=== PATIENT | female | born 1955 | race Asian ===

== ENCOUNTER → 2019-02-03 17:45 | Outpatient (CLI) | payer OTHER, SELFPAY ==
--- NOTE | ~2019-02-03 | MM_ITS ---
EXAMINATION: MM screening [facility] BI w thomas HISTORY: Screening mammogram TECHNIQUE: Craniocaudal and mediolateral oblique 3-D tomosynthesis images were obtained and synthetic 2-D images were generated. CAD analysis was submitted and interpreted. COMPARISON: No prior mammogram is available for comparison at this institution. BREAST PARENCHYMAL COMPOSITION: The breasts are heterogeneously dense, which may obscure small masses . FINDINGS: There is no evidence of suspicious mass, calcification, or architectural distortion to sugg est malignancy in either breast. IMPRESSION: 1. No mammographic evidence of malignancy. 2. Recommend routine screening mammography in one year. BI-RADS Category 1: Negative Reviewed, dictated and finalized at location A. AIDE
== END ==
PROVIDERS: Visit Provider Nurse Practitioner Family
DX: Z12.31 Encounter for screening mammogram for malignant neoplasm of breast (principal)
CPT/HCPCS: 77063; 77067

== ENCOUNTER → 2020-05-05 10:04 | Outpatient (CLI) | payer OTHER, SELFPAY ==
--- NOTE | ~2020-05-05 | MM_ITS ---
EXAMINATION: MM screening [facility] w thomas HISTORY: Screening TECHNIQUE: Craniocaudal and mediolateral oblique 3-D tomosynthesis images were obtained and synthetic 2-D images were generated. CAD analysis was submitted and interpreted. COMPARISON: 02/03/2019 BREAST PARENCHYMAL COMPOSITION: The breasts are heterogeneously dense, which may obscure small masses . FINDINGS: There is no evidence of suspicious mass, calcification, or architectural distortion to sugg est malignancy in either breast. There has been no suspicious interval change. IMPRESSION: 1. No mammographic evidence of malignancy. 2. Recommend routine screening mammography in one year. BI-RADS Category 1: Negative Reviewed, dictated and finalized at location A. 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
== END ==
PROVIDERS: PCP Family Medicine; Visit Provider Family Medicine
DX: Z12.31 Encounter for screening mammogram for malignant neoplasm of breast (principal)
CPT/HCPCS: 77063; 77067

== ENCOUNTER → 2020-05-17 07:54 | Outpatient (CLI) | payer OTHER, SELFPAY ==
--- NOTE | ~2020-05-17 | XR_ITS ---
EXAMINATION: XR chest 2V DATE: 05/17/2020 08:14 INDICATION: Other chest pain. TECHNIQUE: Frontal and lateral views of the chest were obtained. COMPARISON: Abdomen radiographs 12/24/2018 FINDINGS: Calcified left lung nodules are consistent with old granulomatous disease. There is volume loss of right hemithorax with blunting of the costophrenic angles and right sixth rib thoracotomy def ect, consistent with partial right lung resection. No significant pleural effusion. No pneumothorax. The heart size is normal. IMPRESSION: 1. Changes of partial right lung resection. Reviewed, dictated and finalized at location A.
== END ==
PROVIDERS: PCP Family Medicine; Visit Provider Family Medicine
DX: R07.89 Other chest pain (principal)
CPT/HCPCS: 71046

== ENCOUNTER 2020-11-29 10:42 | Outpatient (CLI) | payer MEDICARE, SELFPAY ==
--- NOTE | ~2020-11-29 | XR_ITS ---
XR pelvis 1-2V DATE: 11/29/2020 10:59 INDICATION: Right iliac crest pain, coccyx pain TECHNIQUE: AP view COMPARISON: None FINDINGS: The pubic symphysis and sacroiliac joints are intact. Hip joint spaces appear symmetric and relatively preserved. No pelvic fracture or bone destruction. The sacrum and coccyx appear normal. IMPRESSION: Negative Reviewed, dictated and finalized at location B. IMPRESSION: Negative
== END 2020-11-29 10:43 | disposition home or self-care (01) ==
PROVIDERS: PCP Family Medicine; Visit Provider Physician Assistant
DX: M89.8X8 Other specified disorders of bone, other site (principal); M53.3 Sacrococcygeal disorders, not elsewhere classified
CPT/HCPCS: 72170

== ENCOUNTER → 2021-10-03 12:18 | Outpatient (CLI) | payer MEDICARE, SELFPAY ==
--- NOTE | ~2021-10-03 | DEXA_ITS ---
Bone Density Report Name: ASHLY LAI Age: 65 Sex: Female Ethnicity: Date of : 1955 Indication: postmenopausal; screening for osteoporosis; Referring Provider: FÉLIX PETERSON Study: Bone densitometry was performed. Exam Date: October 03, 2021 Accession number: [id number] Bone Density: Region BMD T-score Z-score Classification AP Spine (L1-L4) 0.840 -1.9 -0.1 Osteopenia Femoral Neck (Left) 0.702 -1.3 0.2 Osteopenia Total Hip (Left) 0.871 -0.6 0.7 Normal Femoral Neck (Right) 0.662 -1.7 -0.1 Osteopenia Total Hip (Right) 0.855 -0.7 0.6 Normal Total Hip Mean 0.863 -0.7 0.7 Normal World Health Organization criteria for BMD impression classify patients as: Normal (T-score at or above -1.0), Osteopenia (T-score between -1.0 and -2.5), or Osteoporosis (T-score at or below -2.5). 10-year Fracture Risk(1): Major Osteoporotic Fracture 6.3% Hip Fracture 1.0% Reported Risk Factors: [place] (), Neck BMD=0.662, BMI=25.7, alcohol use (1) FRAX(R) Version 3.08. Fracture probability calculated for an untreated patient. Fracture probability may be lower if the patient has received treatment. Clinical Information Provided by Patient: Has 3 or more alcoholic drinks per day Has used the following medications: Vitamin D, Calcium, MTV Patient maximum height was 59.5 Menopause Age: 51 Does not regularly consume dairy products Drinks caffeinated beverages Onset of menses at age 16 Number of children 2 Impression: The patient has low bone mass, based on the Total Spine T-score. The patient has an estimated ten-year risk of hip fracture of 1% and an estimated ten-year risk of major fracture of 6.3%, based on the WHO FRAX algorithm. The patient has risk factors, including: excessive alcohol use. Discussion: BONE DENSITY IS LOW AT ONE OR MORE SKELETAL SITES. This patient's lowest T-score is low at one or more skeletal sites. It meets the World Health Organization's (WHO) criteria for ?low bone mass? (T-score between -1.0 and -2.5). The patient's 10-year risk of fracture as calculated by FRAX is less than the threshold where pharmacological therapy is recommended by the National Osteoporosis Foundation (NOF). However, all treatment decisions require clinical judgment and consideration of individual patient factors, including patient preferences, comorbidities, previous drug use, risk factors not captured in the FRAX model (e.g., frailty, falls, vitamin D deficiency, increased bone turnover, interval significant decline in bone density) and possible under or overestimation of fracture risk by FRAX. The patient should follow a healthful lifestyle (good nutrition with adequate calcium and vitamin D, and appropriate weight-bearing exercise). Follow-Up: Consider repeating this study in 2 to 3 years to re
--- NOTE | ~2021-10-03 | MM_ITS ---
EXAMINATION: MM screening [facility] BI w thomas HISTORY: Screening TECHNIQUE: Craniocaudal and mediolateral oblique 3-D tomosynthesis images were obtained and synthetic 2-D images were generated. CAD analysis was submitted and interpreted. COMPARISON: Comparison to multiple prior studies sequentially, with oldest reviewed study dated 06/2018. BREAST PARENCHYMAL COMPOSITION: The breasts are heterogenously dense, which may obscure small masses FINDINGS: There is no evidence of suspicious mass, calcification, or architectural distortion to sugg est malignancy in either breast. There has been no suspicious interval change. IMPRESSION: 1. No mammographic evidence of malignancy. 2. Recommend routine screening mammography in one year. BI-RADS Category 1: Negative Reviewed, dictated and finalized at location A.
== END ==
PROVIDERS: PCP Family Medicine; Visit Provider Nurse Practitioner Gerontology
DX: Z12.31 Encounter for screening mammogram for malignant neoplasm of breast (principal); Z78.0 Asymptomatic menopausal state
CPT/HCPCS: 77063; 77067; 77080

== ENCOUNTER → 2023-01-17 13:31 | Outpatient (CLI) | payer MEDICARE, SELFPAY ==
--- NOTE | ~2023-01-17 | MM_ITS ---
EXAMINATION: MM screening [facility] BI w thomas HISTORY: Screening mammogram TECHNIQUE: Craniocaudal and mediolateral oblique 3-D tomosynthesis images were obtained and synthetic 2-D images were generated. CAD analysis was submitted and interpreted. COMPARISON: 10/03/2021, 05/05/2020, 02/03/2019 BREAST PARENCHYMAL COMPOSITION: The breasts are heterogeneously dense, which may obscure small masses . FINDINGS: No suspicious mass, calcification, or architectural distortion are identified in either marcelino ast to suggest malignancy. There has been no suspicious interval change. IMPRESSION: 1. No mammographic evidence of malignancy. 2. Recommend routine screening mammography in one year. BI-RADS Category 1: Negative Reviewed, dictated and finalized at location A. 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
== END ==
PROVIDERS: PCP Family Medicine; Visit Provider Family Medicine
DX: Z12.31 Encounter for screening mammogram for malignant neoplasm of breast (principal)
CPT/HCPCS: 77063; 77067

== ENCOUNTER 2023-07-15 07:04 | Outpatient (CLI) | payer MEDICARE, SELFPAY ==
[2023-07-15 08:58] LABS: Alanine Aminotransferase 86 U/L (6-35); Albumin Level 4.5 g/dL (3.5-5.1); Alkaline Phosphatase 81 U/L (38-126); Anion Gap 5 mmol/L (4-12); Aspartate Amino Transferase 62 U/L (14-36); Bilirubin,Total 0.6 mg/dL (0.2-1.3); Blood Urea Nitrogen 17 mg/dL (7-17); Carbon Dioxide 27 mmol/L (22-30); Chloride 105 mmol/L (98-107); Cholesterol 175 mg/dL (0-200); Estimated Glomerular Filt Rate > 60; Glucose 100 mg/dL (65-110); HDL Direct 55 mg/dL; Potassium 4.1 mmol/L (3.4-5.0); Sodium 137 mmol/L (137-145); Triglycerides 280 mg/dL (<150)
[2023-07-15 09:09] LABS: LDL Cholesterol Direct 68 mg/dL
== END 2023-07-15 07:05 | disposition home or self-care (01) ==
LOC: ANHLAB 07:06
PROVIDERS: PCP Family Medicine; Visit Provider Physician Assistant
DX: E78.1 Pure hyperglyceridemia (principal); E78.2 Mixed hyperlipidemia; I10 Essential (primary) hypertension
CPT/HCPCS: 36415; 80053; 80061

== ENCOUNTER 2023-09-01 08:44 | Outpatient (CLI) | payer MEDICARE, SELFPAY ==
--- NOTE | ~2023-09-01 | US_ITS ---
COMPLETE ABDOMINAL ULTRASOUND Ordering provider: Rhonda Andrade MD History: . R74.01 - Elevation of levels of liver transaminase levels . Comparison: None. FINDINGS: LIVER: Normal size and echotexture. No focal hepatic lesions or perihepatic fluid collections are mahin ntified. Normal flow of the portal vein. GALLBLADDER: Unremarkable. No evidence for stones, sludge, gallbladder wall thickening or pericholecy stic fluid collections. Wall thickening is 0.2 cm. A negative sonographic Hoff's sign was noted. BILIARY DUCTS: No evidence for intra or extrahepatic biliary dilation. Common bile duct measures 9 mm in diameter which is within normal limits. PANCREAS: Normal echotexture and size. UPPER ABDOMINAL AORTA: Normal in caliber. IVC: Patent. FREE FLUID: None. IMPRESSION: 1. Unremarkable limited ultrasound of the abdomen. Reviewed, dictated and finalized at location A.
[2023-09-01 10:16] LABS: Alanine Aminotransferase 25 U/L (6-35); Albumin Level 4.6 g/dL (3.5-5.1); Alkaline Phosphatase 68 U/L (38-126); Anion Gap 6 mmol/L (4-12); Aspartate Amino Transferase 30 U/L (14-36); Bilirubin,Total 0.8 mg/dL (0.2-1.3); Blood Urea Nitrogen 16 mg/dL (7-17); Calcium 9.4 mg/dL (8.4-10.2); Carbon Dioxide 29 mmol/L (22-30); Chloride 106 mmol/L (98-107); Estimated Glomerular Filt Rate > 60; Glucose 97 mg/dL (65-110); Potassium 4.8 mmol/L (3.4-5.0); Sodium 141 mmol/L (137-145)
[2023-09-01 10:45] LABS: Hepatitis B Surface Antigen Negative (Negative)
[2023-09-01 10:51] LABS: HAV RESULT Negative (Negative); Hepatitis B Core IgM Result Negative (Negative)
[2023-09-01 11:02] LABS: Hepatitis C Virus Antibody Negative (Negative)
== END 2023-09-01 08:45 | disposition home or self-care (01) ==
LOC: ANHIMG 08:50
PROVIDERS: PCP Family Medicine; Visit Provider Family Medicine
DX: R74.01 Elevation of levels of liver transaminase levels (principal); R53.83 Other fatigue; I10 Essential (primary) hypertension
CPT/HCPCS: 36415; 76705; 80053; 80074

== ENCOUNTER 2024-03-19 14:33 | Outpatient (CLI) | payer MEDICARE, SELFPAY ==
--- NOTE | 2024-03-19 15:00 | ECHO_ITS ---
Patient Info Name: Shola Doty Age: 68 years : 1955 Gender: Female Ht: 60 in Wt: 130 lbs BSA: 1.59 m2 HR: 73 bpm BP: 120 / 81 mmHg Heart Rhythm: Sinus Rhythm Technical Quality: Good Exam Date: 03/19/2024 2:54 PM Exam Location: Echo Lab Patient Status: Outpatient Admit Date: 03/19/2024 Staff Ordering Physician: Lupe, Rhonda Garvin MD Railway Signal Technician: Annmarie Quintana RDCS Attending Provider: Lupe, Rhonda Garvin MD Referring Physician: Lupe [place]; Exam Type: CA echo doppler color flow Study Info Indications R01.1 - Cardiac murmur, unspecified Complete two-dimensional, color flow and Doppler transthoracic echocardiogram is performed. Summary 1. Complete two-dimensional, color flow and Doppler transthoracic echocardiogram is performed. 2. Left ventricular chamber dimension is normal. 3. Left ventricular systolic function is normal, estimated at 60-65%. 4. The left ventricular diastolic function is grade I diastolic dysfunction. 5. E/e' 10 is mildly elevated. 6. Left atrial chamber dimension is mildly enlarged. 7. There is moderate aortic valve sclerosis. 8. There is mild tricuspid valve regurgitation. 9. No pulmonary hypertension, estimated pulmonary arterial systolic pressure is 26 mmHg. 10. There is mild pulmonic regurgitation. Left Ventricle E/e' 10 is mildly elevated. Left ventricular chamber dimension is normal. Left ventricular systolic function is normal, estimated at 60-65%. The left ventricular diastolic function is grade I diastolic dysfunction. Right Ventricle Right ventricular chamber dimension is normal. Right ventricular systolic function is normal. Left Atria Left atrial chamber dimension is mildly enlarged. Right Atria Right atrial chamber dimension is normal. Aortic Valve The aortic valve is trileaflet. There is moderate aortic valve sclerosis. There is no aortic valve stenosis. There is no aortic valve regurgitation. Pulmonic Valve There is mild pulmonic regurgitation. Mitral Valve There is no mitral valve stenosis. There is no mitral valve regurgitation. Tricuspid Valve There is mild tricuspid valve regurgitation. No pulmonary hypertension, estimated pulmonary arterial systolic pressure is 26 mmHg. Pericardium/Pleural There is no pericardial effusion. Inferior Vena Cava Normal inferior vena cava with >50% collapse upon inspiration consistent with normal right atrial pressure, 5 mmHg. Aorta The aortic root size at the sinus of Valsalva is normal. Left Ventricular Outflow Tract Name Value Normal LVOT 2D LVOT Diameter 2.0 cm LVOT Doppler LVOT Peak Gradient 4 mmHg LVOT Mean Gradient 2 mmHg LVOT VTI 17 cm LVOT VTI/AV VTI Ratio 0.7 LVOT Stroke Volume 51 ml LVOT CO 3.1 l/min LVOT CI 1.9 l/min/m2 Pulmonic Valve Name Value Normal RVOT Doppler RVOT Peak Gradient 2 mmHg PV Doppler PV Peak Gradient 4 mmHg Mitral Valve Name Value Normal MV Doppler MV Decel [place] 220 cm/s2 MV PHT 69 ms MV Area (PHT) 3.2 cm2 4.0-5.0 MV Diastolic Function MV E Peak Velocity 52 cm/s MV A Peak Velocity 67 cm/s MV E/A 0.8 MV Decel Time 238 ms MV Annular TDI MV E/e' (Septal) 15.0 <=8.0 MV E/e' (Lateral) 8.3 <=8.0 MV E/e' (Average) 11.6 Tricuspid Valve Name Value Normal TV Regurgitation Doppler TR Peak Velocity 227 cm/s TR Peak Gradient 20 mmHg Estimated PAP/RSVP RA Pressure 5 mmHg <=5 PA Systolic Pressure 26 mmHg <36 RV Systolic Pressure 26 mmHg <36 Aorta Name Value Normal Ascending Aorta Ao Root Diameter (MM) 3.4 cm Ao Root Diam Index (MM) 2.1 cm/m2 Aortic Valve Name Value Normal AV Doppler AV Peak Velocity 128 cm/s AV Peak Gradient 7 mmHg AV Mean Gradient 4 mmHg AV VTI 24 cm AV Area (Cont Eq VTI) 2.1 cm2 >=3.0 AV Area (Cont Eq Robert) 2.4 cm2 AV Regurgitation 2D LVOT Area 3.0 cm2 Ventricles Name Value Normal LV Dimensions 2D/MM IVS Diastolic Thickness (2D) 0.9 cm 0.6-1.0 LVID Diastole (2D) 4.1 cm 3.8-5.2 LVIW Diastolic Thickness (2D) 0.9 cm 0.6-0.9 LVID Systole (2D) 2.6 cm 2.2-3.5 LVOT Diameter 2.0 cm LV Mass (2D Cubed) 111.28 g 67.00-162.00 LV Mass Index (2D Cubed) 70 g/m2 43-95 Relative Wall Thickness (2D) 0.44 LV Fractional Shortening/Ejection Fraction 2D/MM LV Fractional Shortening (2D) 36 % 27-45 LV EF (2D Teicholz) 66 % 54-74 LV Diastolic Volume (4C MOD) 48 ml LV EF (4C MOD) 66 % LV Diastolic Volume (2C MOD) 31 ml LV EF (2C MOD) 65 % LV Diastolic Volume (BP MOD) 40 ml 46-106 LV Diastolic Volume Index (BP MOD) 25 ml/m2 29-61 LV Systolic Volume (BP MOD) 14 ml 14-42 LV Systolic Volume Index (BP MOD) 9 ml/m2 8-24 LV EF (BP MOD) 65 % 54-74 LV Diastolic Length (4C) 7.1 cm LV Systolic Length (4C) 5.9 cm LV Stroke Volume (4C MOD) 32 ml Atria Name Value Normal LA Dimensions LA Dimension (MM) 3.4 cm 2.7-3.8 LA Volume (4C A-L) 62 ml LA Volume (BP A-L) 59 ml RA Dimensions RA Area (4C) 8.6 cm2 <=18.0 Report Signatures
== END 2024-03-19 14:34 | disposition home or self-care (01) ==
PROVIDERS: PCP Family Medicine; Visit Provider Family Medicine
DX: I36.1 Nonrheumatic tricuspid (valve) insufficiency (principal); I35.0 Nonrheumatic aortic (valve) stenosis
CPT/HCPCS: 93306

== ENCOUNTER 2024-05-24 07:58 | Outpatient (CLI) | payer MEDICARE, SELFPAY ==
--- NOTE | ~2024-05-24 | DEXA_ITS ---
Bone Density Report Name: ASHLY LAI Age: 68 Sex: Female Ethnicity: White Date of : 1955 Indication: postmenopausal; screening for osteoporosis; height loss; Referring Provider: BETO, RAHEL Garvin Study: Bone densitometry was performed. Exam Date: May 24, 2024 Accession number: [id number] Bone Density: Region BMD T-score Z-score Classification AP Spine(L1-L4) 0.904 -1.3 0.7 Osteopenia Femoral Neck (Left) 0.733 -1.0 0.7 Normal Total Hip (Left) 0.982 0.3 1.7 Normal Femoral Neck (Right) 0.702 -1.3 0.4 Osteopenia Total Hip (Right) 0.852 -0.7 0.7 Normal Total Hip Mean 0.917 -0.2 1.2 Normal World Health Organization criteria for BMD impression classify patients as: Normal (T-score at or above -1.0), Osteopenia (T-score between -1.0 and -2.5), or Osteoporosis (T-score at or below -2.5). 10-year Fracture Risk(1): Major Osteoporotic Fracture 9.4% Hip Fracture 1.1% Reported Risk Factors: [place] (), Neck BMD=0.702, BMI=25.5 (1) FRAX(R) Version 3.08. Fracture probability calculated for an untreated patient. Fracture probability may be lower if the patient has received treatment. Clinical Information Provided by Patient: Has used the following medications: Vitamin D, Calcium Patient maximum height was 62.0 Menopause Age: 50 No regular weight bearing exercise Does not regularly consume dairy products Drinks caffeinated beverages Onset of menses at age 16 Number of children 2 Impression: The patient has low bone mass, based on the Total Spine T-score. The patient has an estimated ten-year risk of hip fracture of 1.1% and an estimated ten-year risk of major fracture of 9.4%, based on the WHO FRAX algorithm. Discussion: BONE DENSITY IS LOW AT ONE OR MORE SKELETAL SITES. This patient's lowest T-score is low at one or more skeletal sites. It meets the World Health Organization's (WHO) criteria for ?low bone mass? (T-score between -1.0 and -2.5). The patient's 10-year risk of fracture as calculated by FRAX is less than the threshold where pharmacological therapy is recommended by the National Osteoporosis Foundation (NOF). However, all treatment decisions require clinical judgment and consideration of individual patient factors, including patient preferences, comorbidities, previous drug use, risk factors not captured in the FRAX model (e.g., frailty, falls, vitamin D deficiency, increased bone turnover, interval significant decline in bone density) and possible under or overestimation of fracture risk by FRAX. The patient should follow a healthful lifestyle (good nutrition with adequate calcium and vitamin D, and appropriate weight-bearing exercise). Follow-Up: Consider repeating this study in 2 to 3 years to reassess this patient's status, or sooner if there is some new clinical indication. Reported by: MARILIN on 05/24/2024 8:31:00 AM. Reviewed, dictated and finalized at location AWilberto LÓPEZ
--- NOTE | ~2024-05-24 | MM_ITS ---
EXAMINATION: MM screening [facility] BI w thomas HISTORY: Screening TECHNIQUE: Craniocaudal and mediolateral oblique 3-D tomosynthesis images were obtained and synthetic 2-D images were generated. CAD analysis was submitted and interpreted. COMPARISON: 01/17/2023 and dating back to 02/03/2019 BREAST PARENCHYMAL COMPOSITION: The breasts are heterogeneously dense, which may obscure small masses . FINDINGS: Punctate and bulky calcifications are detected bilaterally, stable and benign in appearance . Stable parenchymal pattern without suspicious microcalcifications, architectural distortion, discrete masses or significant asymmetry. IMPRESSION: 1. No mammographic evidence of malignancy. 2. Recommend routine screening mammography in one year. BI-RADS Category 2: Benign finding(s). Reviewed, dictated and finalized at location A.
--- OUTSIDE RECORDS SUMMARY | 2024-05-24 08:07 | XMS_ITS | Clinical Summary ---
Author Organization [facility] Address [address] [place] [address] Care Team Providers Care Pack Changer Name Role Phone Rhonda Andrade MD Primary Care Provider [phone] Allergies No known active allergies Medications omeprazole (PRILOSEC) 40 MG capsule Take 40 mg by mouth daily. Active rosuvastatin (CRESTOR) 5 MG tablet Take 5 mg by mouth nightly at bedtime. Active fluticasone propionate (FLONASE) 50 MCG/ACT nasal spray 1 spray by Nasal route daily. Active Active Problems No known active problems Immunizations Name Administration Dates Next Due NetPayment (Verical [employer] Verical) COVID-19 AD26 VACCINE 0.5 ML IM SUSP 05/08/2020 RPost COVID-19 (DOMINGO CAP), MRNA, LNP-S, PF, 30 MCG/0.3 ML ALICIA-SUCROSE, IM 02/15/2021 Social History Tobacco Use Types Packs/Day Years Used Date Smoking Tobacco: Former Cigarettes Smokeless Tobacco: Never Snuff Alcohol Use Standard Drinks/Week Comments Yes 0 (1 standard drink = 0.6 oz pur e alcohol) 2-3 glasses of wine daily Comments No Sex and Gender Information Value Date Recorded Sex Assigned at Not on file Legal Sex Female 10:06 PM CDT Gender Identity Not on file Sexual Orientation Not on file Last Filed Vital Signs Vital Sign Reading Time Taken Comments Blood Pressure 130/70 10/29/2021 10:02 AM CDT Pulse 57 10/29/2021 10:02 AM CDT Temperature 36.8 C (98.2 F) 10/29/2021 10:02 AM CDT Respiratory Rate 18 10/29/2021 10:02 AM CDT Oxygen Saturation 98% 10/29/2021 10:02 AM CDT Inhaled Oxygen Concentration - - Weight 59 kg (130 lb) 10/23/2021 1:13 PM CDT Height 152.4 cm (5') 10/23/2021 1:13 PM CDT Body Mass Index 25.39 10/23/2021 1:13 PM CDT Plan of Treatment Health Maintenance Due Date Last Done Comments Colorectal Cancer Screening Colonoscopy (10 Years) 1955 Hepatitis C 10/15/1973 DTaP, Tdap and Td Vaccines ( 1 - Tdap) 10/15/1974 Mammogram Screening 1995 Zoster Vaccines (1 of 2) 10/15/2005 Annual Medicare Wellness Visit 10/15/2020 Dexa Scan (General) 10/15/2020 Pneumococcal Vaccine: 65+ Years (1 of 1 - PCV) 10/15/2020 COVID-19 Vaccine (3 - 2023-2 5 season) 2023 02/15/2021, 05/08/2020 Influenza Adult (#1) 2023 RSV Immunization or 60+ Years (1 - 1-dose 75+ series) 10/15/2030 Meningococcal B Vaccine Aged Out No l onger eligible based on patient's age to complete this topic Meningococcal Vaccine Aged Out No lenard sulaiman eligible based on patient's age to complete this topic RSV Immunizations Under 20 Months Aged Out No longer eligible b ased on patient's age to complete this topic Medical Devices Implanted Type Area Deputy Program Manager Device Identifier Shelf Expiration Date Model / Serial / Lot Iol Toric Lens [id number] - [id number] Implanted:Qty: 1 on 09/24/2021 by Dino Keith MD at [facility] Lens Left: [employer] [id number] 09/30/2021 [id number] / [id number] / Iol Toric Lens [id number] - [id number] Implanted:Qty: 1 on 10/29/2021 by Dion Keith MD at [facility] Lens Right: Eye [employer] [id number] 02/07/2026 [id number] / [id number] / Insurance MED REPLACE [facility] MEDICARE Care Teams Pack Changer Relationship Specialty Start Date End Date Rhonda Andrade MD [id number] [place] [address] PCP - General FAMILY PRACTICE 09/24/21
--- OUTSIDE RECORDS SUMMARY | 2024-05-24 08:07 | XMS_ITS | Data Portability ---
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 She has pain in both knees worse with activity somewhat relieved by rest. It has been affecting her now for 2 years and finally she comes seeking treatment. She has not had much in the way of conservative care. On exam she has good motion her hips and knee she has got a positive patellar compression test right greater than left she does have grinding crepitus in both knees. Her x-rays show moderate degenerative change. We will try a shot of cortisone and this is done with 20 mg Kenalog 4 cc 1% lidocaine the right left knee. For prescription Drug management will try a prednisone taper for pain and inflammation. Will also begin therapy with follow-up in 1 month discussed mainor Not available 05/30/2022 09:59:40 07/01/2022 07/01/2022 Patient returns knee pain bilaterally. She has arthritis in both knees. Particularly patellofemoral. She gets some relief the injection just did not last she did the prednisone helped very. I will check switch her to diclofenac for prescription drug management for pain and inflammation. Injected both knees with 20 Kenalog 4 cc 1% lidocaine. Pain inflammation I will see her back in a month reassess at that point she should continue with exercises. [email or web address] Not available 07/01/2022 10:42:48 07/30/2022 07/30/2022 Patient returns patellofemoral pain bilaterally. She has had a nice response to conservative treatment. I think she can be released at this time. She is going to continue with anti-inflammatory medication. For prescription drug management will give her Voltaren for pain and inflammation this is been helpful to her at this point I do not think inject any further injections are warranted. She will continue with therapy follow up on an as-needed basis discussed. Not available 07/30/2022 14:52:34 08/29/2022 08/29/2022 Patient returns knee pain right greater than left. She has failed conservative treatment medicine therapy cortisone exercise time unfortunately remains symptomatic. She has some catching and locking in the knee primarily medially with mechanical-type symptoms. She is due to the fact she has failed conservative treatment has mechanical symptoms we will get an MRI scan to rule out a meniscal tear. She does have some degenerative changes in the knee as well which we discussed. Not available 08/29/2022 09:52:49 09/16/2022 09/16/2022 Patient returns knee pain right. She remains symptomatic and has occasional catching in the knee. She presents with an MRI scan. I reviewed the MRI pictures in the report with the patient in detail and she has indeed arthritis in the patellofemoral area as well as a lateral meniscal tear. I have offered her surgical intervention she has declined for now. She would like to leave well enough alone. If it just does not get better gets worse she will call and we can discuss surgical options again. [email or web address] Not available 09/16/2022 11:09:06 Plan of Treatment Reminders Order Date Submit Date Provider Last Modified By Organization Details Last Modified Time Details Appointments None recorded. Lab None recorded. Referral physical therapist referral - please contact patient to schedule 2022 023 [facility] [place] [facility], [address], [place], [address], 11:15:20 Procedures injection/ aspiration joint/burs a (PROC) - in office procedure, administer ed by provider 2022 023 [email or web address] In-Office Order, Internal Use Only DO Not Attach Compendium DO Not Attach Compendium, Do Not Delete/merge, [id number] 09:53:01 injection/ aspiration joint/burs a (PROC) - in office procedure, administer ed by provider 2022 023 [email or web address] In-Office Order, Internal Use Only DO Not Attach Compendium DO Not Attach Compendium, Do Not Delete/merge, [id number] 3 09:47:08 Surgeries None recorded. Imaging MRI, knee, w/o contrast 2022 023 [facility], [address], [place], [address], 3 15:29:47 XR, knee, 4 or more view 2022 023 [place] [id number] 58 [facility] [place], [address] [facility] [address], [place], [address], 3 09:59:58 Medication Orders Kenalog 10 mg/mL suspension for injection 2022 023 [id number], [address] [facility], [place], [id number], 3 09:59:06 ropivacain e (PF) 5 mg/mL (0.5 %) injection solution 2022 [address]23 [id number], [address] [facility] [place] [id number], 3 09:59:06 diclofenac sodium 75 mg tablet,del ayed release 2022 023 [place] [address] [id number], [address], [place], [place], [id number], 3 09:59:06 Kenalog 10 mg/mL suspension for injection 2022 023 [place] [address] 58 [facility], [address], [place], [place], [id number], 3 09:57:45 ropivacain e (PF) 5 mg/mL (0.5 %) injection solution 2022 023 tab 58 [facility] #46754, [address] [facility], [place], [place], [id number], 3 09:57:45 prednisone 10 mg tablets in a dose pack 2022 023 [email or web address] 58 [facility] #67399, [address] [facility], [place], [place], [id number], 3 09:57:45 Patient TargetsNo targets recorded. Patient InstructionsNo instructions recorded. Reason for Referral Physical Therapist Referral for Pain of bilateral knee joints please contact patient to schedule Referring Physician: Dipak Titus, Orthopedic Surgery, Encounter Date: 05/30/2022 Results Created Date Observation Date Name Description Value Unit Range Abnormal Flag Note LastModifiedBy Organization Detail LastModifiedTime 05/31/19 23 XR, knee, 4 or more view No observ ation record ed. [email or web address] [facility] [place] 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 COMPAR LANDEN: Radiog quintin dated 2022. TECHNI QUE: Multip lanar multis equenc e noncon trast MR images of the right knee were perfor med. OSEAS GS: No fractu res are identi fied throug hout the right knee. The ACL, PCL, MCL, LCL, belkis ceps tendon , patell ar tendon , and poplit eus tendon are intact . There is a belkis ceps tendon insert ion enthes ophyte on the superi or pole of the patell a. There is a vertic ally-o riente d tear of the anteri or horn of the Page 1 of 2 [facility] Name: ASHLY LAI ion #: [id number] Sex: F : 1955 5 Exam Date: 09/07/19 6:53 AM Exam Name: MRI KNEE RT WO Admitt ing Diagno sis(es ): latera l menisc us. 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 No signif icant latera l patell ar sublux ation. There is modera te chondr al thinni ng of the medial compar tment and full-t hickne ss loss of articu lar cartil age of the latera l patell ar facet. There is subcho ndral edema and/or cystic change involv ing the medial compar tment on both sides of the joint, and involv ing the latera l patell ar articu lation on both sides of the joint. There is no signif icant chondr omalac ia of the latera l compar tment. There is a small to modera te joint effusi on. There is a poplit eal fossa cyst measur ing 3 cm longit udinal . IMPRES ABHINAV: 1. The crucia te and collat eral ligame nts are intact . 2. Small tear of the anteri or horn of the latera l menisc us. 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 3. Advanc ed chondr omalac ia patell a and interm ediate to advanc ed chondr omalac ia of the medial compar tment. 4. Small to modera te joint effusi on and poplit eal fossa cyst. Create d and electr onical ly signed by: Michael gibson MD Signed Date: 09/07/19 2:27 PM (CT) Dictat ed by: Michael gibson MD (CT) (CT) Page 2 of 2 [email or web address] [facility] (Imaging) [address] [place], [address], 09/06/2022 15:37:51 09/21/1909/06/2022 MRI, knee, w/o contr ast No observ ation record ed. [email or web address] [facility] [address], [place], [address], 09/20/2022 14:16:26 Result Notes None recorded. Problems Name Problem SNOMED Code Status Onset Date Resolution Date Notes Provider Name and Address Organization Details Recorded Time Pain of right knee joint 0438037623309 00 Active 2022 LIBAN Barclay null, [employer] 3 09:34:11 Pain of bilateral knee joints 1728366094086 04 Active 2022 Padmini Sauceda CNA null, [employer] 3 09:45:46 Chondromala rafael of right patella 8971250341198 9108 Active 2022 Dipak Titus MD [address], [place], [address], [employer] 3 10:00:14 Chondromala rafael of left knee 9317239018352 9102 Active 2022 Dipak Titus MD [address], [address], [place], [address], [employer] 3 10:00:18 Bilateral osteoarthri tis of knees 1362150321099 07 Active 2022 Dipak Titus MD [address] [place] [address] [address], [place], [address], [employer] 3 10:00:25 Tear of lateral meniscus of knee 582731557 Active 2022 Dipak Titus MD [address] [facility], [place] [address] [address], [place], [address], [employer] 3 11:09:19 Problem Notes None recorded. Procedures Surgical History Date Name Laterality Status Provider Name and Address Organization Details Recorded Time 3 Ortho - Cortisone Injection completed Dipak Titus MD [address], [place] [address], [place], [address], [employer] 07/01/2022 10:42:05 3 Ortho - Cortisone Injection completed Dipak Titus MD [address], [place] [address], [place], [address], [employer] 05/30/2022 09:58:25 Imaging Results Imaging Date Name Status LastModified by Organiz ation Details LastModified Time 05/30/2022 XR, knee, 4 or more view completed mainor [facility] [place] [address], [place], [address], 05/30/2022 09:59:57 09/06/2022 MRI, knee, w/o contrast completed [email or web address] [facility] (Imaging) [address] [place], [address], 09/06/2022 15:37:51 09/06/2022 MRI, knee, w/o contrast completed [email or web address] [facility] [address], [place], [address], 09/20/2022 14:16:26 Procedure Notes None recorded. Medical Equipment None Reported. Allergies No known drug allergies Medications Name Sig Start Date Stop Date Status Note LastModified by Organization Details LastModified Time prednisone 10 mg tablet active Not Available Not Available Not Available omeprazole 40 mg capsule,del ayed release TAKE 1 CAPSULE BY MOUTH DAILY active Not Available Not Available No t Available prednisone 10 mg tablets in a dose pack Take 1 tab by mouth, 3 times a day for 3 daysTake 1 tab by mouth 2 times a day for 2 daysTake 1 tab by mouth once a day for 1 day 2022 active Not Available Not Available Not Jet arnold Kenalog 10 mg/mL suspension for injection Take 40 mg by injection route. 2022 active [facility]: 0003- [phone]- [phone] Not Available Not Available Not Available diclofenac sodium 75 mg tablet,jesus yed release TAKE 1 TABLET BY MOUTH TWICE DAILY active Not Available Not Available No t Available fluticasone propionate 50 mcg/actuati on nasal spray,suspe nsion SHAKE LIQUID AND USE 1 SPRAY IN EACH NOSTRIL EVERY 12 HOURS 05/30 completed Not Available Not Available Not Available amoxicillin 875 mg-potassiu m clavulanate 125 mg tablet TAKE 1 TABLET BY MOUTH TWICE DAILY 05/30 completed Not Available Not Available Not Available tobramycin 0.3 %-dexametha sone 0.1 % eye drops,suspe nsion INSTILL 1 DROP INTO BOTH EYES FOUR TIMES DAILY FOR 5 DAYS active Not Available Not Available No t Available moxifloxaci n 0.5 % eye drops INSTILL 1 DROP IN LEFT EYE EVERY 8 HOURS DURING THE DAY FOR 7 DAYS active Not Available Not Available No t Available rosuvastati n 5 mg tablet TAKE 1 TABLET BY MOUTH DAILY active Not Available Not Available No t Available ropivacaine (PF) 5 mg/mL (0.5 %) injection solution Take 40 mg by injection route. 2022 active Not Available Not Available Not Jet arnold Vitals Date Recorded Body height Body mass index (BMI) Body weight Provider Name and Address Organization Details Last Updated DateTime 05/30/2022 157.48 cm 23.8 kg/m2 69448.01 g LIBAN Barclay [place] [facility] 05/30/2022 09:32:42 Date Recorded Body height Body mass index (BMI) Body weight Provider Name and Address Organization Details Last Updated DateTime 07/01/2022 149.86 cm 26.3 kg/m2 36473.01 g Padmini Sauceda CNA [place] [facility] [employer] [employer] 07/01/2022 09:36:33 Date Recorded Body height Body mass index (BMI) Body weight Provider Name and Address Organization Details Last Updated DateTime 07/30/2022 149.86 cm 26.3 kg/m2 01109.01 g Padmini Sauceda CNA [facility] [employer] 07/30/2022 14:29:43 Date Recorded Body height Body mass index (BMI) Body weight Provider Name and Address Organization Details Last Updated DateTime 08/29/2022 149.86 cm 26.3 kg/m2 09862.01 g Padmini Sauceda PSS [employer] [facility] [employer] 08/29/2022 09:33:27 Date Recorded Body height Provider Name an d Address Organization Details Last Updated DateTime 09/16/2022 149.86 cm Pryia Paul [facility] [employer] 09/16/2022 09:34:26 Social History Question Answer Notes LastModified by Organizat ion Details LastModified Time Tobacco Smoking Status Never Smoker LIBAN Barclay, [facility] [employer] 05/30/2022 09:33:30 What Is Your Level Of Alcohol Consumption? Moderate [email or web address] Information not available 05/30/2022 Sex: Unknown Functional Status None recorded. Mental Status None recorded. Family History Relationship Description Onset Age of this Age Resolved Age Notes LastModified by Organization Details LastModified Time Brother Family history of malignant neoplasm [email or web address] Not available 2022 09:33:10 Mother Diabetes mellitus [email or web address] Not available 2022 09:33:18 Medical History Condition Response ARTHRITIS Y LUNG DISEASE/DISORDER Y Gynecological HistoryNo gynecological history recorded. Obstetrics History GPAL:G 0 P 0 0 0 0 Past Encounters Encounter ID Performer Location Encounter Start Date Encounter Closed Date Diagnosis/Indication Diagnosis SNOMED-CT Code Diagnosis ICD10 Code Diagnosis Note [id number] Dipak Titus MD [facility] [place] [address] [place] [address] 05/30/2022 09:17:06 05/30/2022 09:57:48 Pain of right knee joint 0965255856 76324 M25.561 Pain of bi lateral knee joints 3153385916 94293 M25.561 M25.562 Chondromal acia of right patella 5924399655 7220061 M22.41 Chondromal acia of left knee 8863208935 7465792 M94.262 Bilateral osteoarthritis of knees 7726547219 20370 M17.0 [id number] Dipak Titus MD [facility] [place] [address] [place] [address] 07/01/2022 09:33:28 07/01/2022 10:00:03 Pain of right knee joint 9257029153 99173 M25.561 Pain of bi lateral knee joints 3751995557 40356 M25.561 M25.562 Chondromal acia of left knee 5067822072 2234834 M94.262 Chondromal acia of right patella 7348016293 3206238 M22.41 Bilateral osteoarthritis of knees 4356773672 05566 M17.0 [id number] Dipak Titus MD [facility] [place] [address] [place] [address] 07/30/2022 14:26:39 07/30/2022 14:56:12 Pain of right knee joint 6999065081 48937 M25.561 Pain of bi lateral knee joints 9410573263 72460 M25.561 M25.562 Chondromal acia of left knee 5530874935 8285153 M94.262 Chondromal acia of right patella 4578854567 7995725 M22.41 Bilateral osteoarthritis of knees 4289243473 77749 M17.0 [id number] Dipak Titus MD [facility] [place] [address] [place] [address] 08/29/2022 09:25:38 08/29/2022 10:35:04 Pain of right knee joint 4612229760 96725 M25.561 Pain of bi lateral knee joints 1017168677 85704 M25.561 M25.562 Chondromal acia of left knee 7751652656 3264213 M94.262 Chondromal acia of right patella 2662041745 1439159 M22.41 Bilateral osteoarthritis of knees 9502395116 64892 M17.0 [id number] Dipak Titus MD [facility] [place] [address] [place] [address] 09/16/2022 09:30:56 09/16/2022 10:05:58 Chondromalacia of right patella 4013567884 1891568 M22.41 Pain of ri ght knee joint 3314061112 59817 M25.561 Tear of la teral meniscus of knee 798784717 S83.281A Health Concerns Section Related Observation LastModified by Organization Detai ls LastModified Time None Recorded Concern Status LastModified by Organization Details LastModified Time None Recorded Advance Directives Directive None Recorded Payers Encounter Date Sequence Insurance Name Policy Number Policy Paz Covered Member ID Paz Member ID Guarantor Name 05/30/2022 1 [employer] (PPO) [id number] Ashly Lai [id number] Ashly Lai 07/01/2022 1 [employer] (MEDICARE REPLACEMENT PPO) [id number] Ashly Lai [id number] Ashly Lai 07/30/2022 1 [employer] (MEDICARE REPLACEMENT PPO) [id number] Ashly Lai [id number] Ashly Lai 08/29/2022 1 [employer] (MEDICARE REPLACEMENT PPO) [id number] Ashly Lai [id number] Hendley Lalitha 09/16/2022 1 [employer] (MEDICARE REPLACEMENT PPO) [id number] Ashly Lai [id number] Ashly Lai Notes Date Note Type Note Provider Name and Address Organization Details Recorded Time 05/30/2022 text/html KneeReported bypatient.Location:b ilateral; anterior Quality:aching; burning; throbbing Severity:moderate Duration:continuous since onset Timing:chronic; recurrent; intermittent episodes lasting: Context:cannot identify Alleviating Factors:lying down; rest; elevation; stretching Aggravating Factors:twisting; bending/squatting Associated Symptoms:swelling;wa rmth;popping/clickin g Previous PT:helped a little Dipak Titus MD [address] [place] [address], [facility] [address], [place], [address], [place] [facility] [employer] 05/30/2022 10:01:07 07/01/2022 text/html Patient returns knee pain bilaterally. She has pain in the anterior aspect of both knees. She got good relief from the injections it just did not last. She remains symptomatic and has pain with most activity. Dipak Titus MD [address], [place], [address], [facility] [employer] [facility] 07/01/2022 10:43:22 07/30/2022 text/html Patient returns knee pain bilaterally. Pain is resolved to a large degree with cyst conservative treatment she has responded well to cortisone and therapy and anti-inflammatory medication. Dipak Titus MD [address], [place], [address], [employer] [facility] [employer] [facility] 07/30/2022 14:53:22 08/29/2022 text/html Patient returns knee pain right greater than left. He has pain in both she has pain in both knees although it is worse. She has had medicine therapy cortisone exercise time unfortunately she continues to be symptomatic. She has a catching and locking in the right knee not so much the left. Dipak Titus MD [address], [place], [address], Archive [facility] [employer] [facility] 08/29/2022 09:53:09 09/16/2022 text/html Patient returns knee pain right. She predominantly has patellofemoral pain but also has some catching and locking in the knee. She presents with an MRI scan. Dipak Titus MD [address], [place], [address], [facility] [employer] [facility] 09/16/2022 11:09:34 OBGyn Episode No OBEpisode recorded.
== END 2024-05-24 07:59 | disposition home or self-care (01) ==
LOC: ANHIMG 07:58
PROVIDERS: PCP Nurse Practitioner; Visit Provider Family Medicine
DX: Z12.31 Encounter for screening mammogram for malignant neoplasm of breast (principal); Z78.0 Asymptomatic menopausal state; M85.88 Other specified disorders of bone density and structure, other site; M85.851 Other specified disorders of bone density and structure, right thigh
CPT/HCPCS: 77063; 77067; 77080

== ENCOUNTER 2025-02-28 08:11 | Outpatient (CLI) | payer MEDICARE, SELFPAY ==
--- OUTSIDE RECORDS SUMMARY | 2025-02-28 08:14 | XMS_ITS | Clinical Summary ---
Author Organization [facility] Address [address] [place] [address] Care Team Providers Care Spring Fitter Helper Name Role Phone Rhonda Andrade MD Primary Care Provider [phone] Allergies No known active allergies Medications omeprazole (PRILOSEC) 40 MG capsule Take 40 mg by mouth daily. Active rosuvastatin (CRESTOR) 5 MG tablet Take 5 mg by mouth nightly at bedtime. Active fluticasone propionate (FLONASE) 50 MCG/ACT nasal spray 1 spray by Nasal route daily. Active Active Problems No known active problems Immunizations Immunization Administration Dates Next Due On The Bill ([employer]) COVID-19 AD26 VACCINE 0.5 ML IM SUSP 05/08/2020 [employer] COVID-19 (DOMINGO CAP), MRNA, LNP-S, PF, 30 MCG/0.3 ML ALIICA-SUCROSE, IM 02/15/2021 Social History Tobacco Use Types [...] 1 - Tdap) 10/15/1974 Mammogram Screening 1995 Pneumococcal Vaccine: 50+ Years (1 of 1 - PCV) 10/15/2005 Zoster Vaccines (1 of 2) 10/15/2005 Annual Medicare Wellness Visit 10/15/2020 Dexa Scan (General) 10/15/2020 COVID-19 Vaccine (3 - 2024-2 6 season) 2024 02/15/2021, 05/08/2020 Influenza Adult (#1) 2024 RSV Immunization or 60+ Years (1 - 1-dose 75+ series) 10/15/2030 Hepatitis A Vaccines Aged Out No long er eligible based on patient's age to complete this topic Meningococcal B Vaccine Aged Out No l onger eligible based on patient's age to complete this topic Meningococcal Vaccine Aged Out No lenard sulaiman eligible based on patient's age to complete this topic RSV Immunizations Under 20 Months Aged Out No longer eligible b ased on patient's age to complete this topic Medical Devices Implanted Type Area Medicinal Chemist Device Identifier Shelf Expiration Date Model / Serial / Lot Iol Toric Lens [id number] - [id number] Implanted:Qty: 1 on 09/24/2021 by Dion Keith MD at [facility] Lens Left: [employer] [id number] 09/30/2021 [id number] / [id number] / Iol Toric Lens Sa6at3 - [id number] Implanted:Qty: 1 on 10/29/2021 by Dion Keith MD at [facility] Lens Right: [employer] [id number] 02/07/2026 [id number] / [id number] / Insurance MED REPLACE [facility] MEDICARE Care Teams Spring Fitter Helper Relationship Specialty Start Date End Date Rhonda Andrade MD [address] [facility] [address] [place] [address] PCP - General FAMILY PRACTICE 09/24/21
[2025-02-28 13:39] LABS: Hematocrit 42.1 % (37.0-47.0); Hemoglobin 14.2 g/dL (12.0-15.0); Immature Granulocyte Percent A 0.2 % (0-0.5); Lymphocytes Absolute Auto 2.49 K/mm3 (0.9-3.2); Mean Corpuscular HGB Conc 33.7 g/dl (32-36); Mean Corpuscular Hemoglobin 30.7 pg (26-34); Mean Corpuscular Volume 90.9 fl (80-100); Nucleated Red Blood Cells Absolute Auto 0.000 K/mm3 (0.0-0.012); Nucleated Red Blood Cells Perc 0.0 % (0.0-0.2); Platelet Count Result 292 k/mm3 (150-375); Red Blood Count 4.63 M/mm3 (4.2-5.4); White Blood Count 6.0 K/mm3 (4.5-10.0)
[2025-02-28 13:53] LABS: Alanine Aminotransferase 29 U/L (6-35); Albumin Level 4.6 g/dL (3.5-5.1); Alkaline Phosphatase 66 U/L (38-126); Anion Gap 7 mmol/L (4-12); Aspartate Amino Transferase 42 U/L (14-36); Bilirubin,Total 1.1 mg/dL (0.2-1.3); Blood Urea Nitrogen 15 mg/dL (7-17); Calcium 9.2 mg/dL (8.4-10.2); Carbon Dioxide 25 mmol/L (22-30); Chloride 107 mmol/L (98-107); Cholesterol 225 mg/dL (0-200); Estimated Glomerular Filt Rate > 60; Glucose 86 mg/dL (65-110); HDL Direct 48 mg/dL; Potassium 4.5 mmol/L (3.4-5.0); Sodium 139 mmol/L (137-145); Total Protein 7.4 g/dL (6.3-8.2); Triglycerides 240 mg/dL (<150)
== END 2025-02-28 08:12 | disposition home or self-care (01) ==
LOC: ANHGOSHLAB 08:12
PROVIDERS: PCP Nurse Practitioner; Visit Provider Nurse Practitioner
DX: E78.2 Mixed hyperlipidemia (principal); E55.9 Vitamin D deficiency, unspecified; R74.01 Elevation of levels of liver transaminase levels; R53.83 Other fatigue
CPT/HCPCS: 36415; 80053; 80061; 82306; 85025